=== PATIENT | male | born 1980 | race Caucasian/White ===

== ENCOUNTER 2016-11-04 10:35 | Emergency (ER) | payer MEDICAID, OTHER ==
[2016-11-04 10:50] VITALS: BP 124/77
--- NOTE | 2016-11-04 11:16 | ER Document Report ---
ED Medical Screen (RME) - General Chief Complaint: Dizziness Stated Complaint: DIZZINESS Mode of Arrival: Ambulatory Information source: Patient TRAVEL OUTSIDE OF THE [place] 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 Severity: Mild Associated Symptoms: Dizzy/lightheaded Exacerbated by: Other - Looking up, rapid rotation of head. Relieved by: Other - Resolve spontaneously after several seconds of no head movement. Similar symptoms previously: Yes Recently seen / treated by doctor: No - Related Data Allergies/Adverse Reactions: No Known Allergies Allergy (Verified 11/04/16 11:09) Home Medications: Current Home Medications Alprazolam 1 mg PO TID 11/04/16 [History] Duloxetine HCl [Cymbalta] 30 mg PO DAILY 11/04/16 [History] Propranolol HCl 60 mg PO BID 11/04/16 [History] Past Medical History - General Information source: Patient - Past Medical History Cardiac Medical History: Reports: None Pulmonary Medical History: Reports: None Neurological Medical History: Reports: Other - VERTIGO Renal/ Medical History: Denies: Hx Peritoneal Dialysis Physical Exam - Vital signs Vitals: Temp Pulse Resp BP Pulse Ox 98.2 F 74 18 124/77 96 11/04/16 10:48 11/04/16 10:48 11/04/16 10:48 11/04/16 10:48 11/04/16 10:48 Interpretation: Normal - General General appearance: Appears well, Alert In distress: None - Neurological Notes: NO APPARENT ATAXIA Course - Vital Signs Vital signs: Temp Pulse Resp BP Pulse Ox 98.2 F 74 18 124/77 96 11/04/16 10:48 11/04/16 10:48 11/04/16 10:48 11/04/16 10:48 11/04/16 10:48
[2016-11-04 11:33] LABS: ABSOLUTE BASOPHILS # (AUTO) 0.1 10^3/uL (0.0-0.2); ABSOLUTE EOSINOPHILS # (AUTO) 0.1 10^3/uL (0.0-0.6); ABSOLUTE LYMPHOCYTES (AUTO) 1.8 10^3/uL (0.5-4.7); ABSOLUTE MONOCYTES (AUTO) 0.6 10^3/uL (0.1-1.4); ABSOLUTE NEUT (AUTO) 5.6 10^3/uL (1.7-8.2); BASOPHILS % (AUTO) 0.6 % (0-2); HEMATOCRIT 42.2 % (37.9-51.0); HEMOGLOBIN 14.6 g/dL (13.5-17.0); HGB HCT DIFFERENCE 1.6; LYMPHOCYTES % (AUTO) 21.9 % (13-45); MEAN CORPUSCULAR HEMOGLOBIN 31.2 pg (27.0-33.4); MEAN CORPUSCULAR HGB CONC 34.5 g/dL (32.0-36.0); MEAN CORPUSCULAR VOLUME 91 fl (80-97); RED BLOOD COUNT 4.67 10^6/uL (4.35-5.55); RED CELL DISTRIBUTION WIDTH 13.3 % (11.5-14.0); SEGMENTED NEUTROPHILS % (AUTO) 69.5 % (42-78)
[2016-11-04 11:55] LABS: ALANINE AMINOTRANSFERASE 57 U/L (21-72); ALBUMIN 4.1 g/dL (3.5-5.0); ALKALINE PHOSPHATASE 71 U/L (38-126); ANION GAP 10 (5-19); ASPARTATE AMINO TRANSFERASE 37 U/L (17-59); BILIRUBIN,DIRECT 0.3 mg/dL (0.0-0.4); BILIRUBIN,TOTAL 0.6 mg/dL (0.2-1.3); BLOOD UREA NITROGEN 13 mg/dL (7-20); CALCIUM 9.2 mg/dL (8.4-10.2); CARBON DIOXIDE 27 mmol/L (22-30); CHLORIDE 106 mmol/L (98-107); CREATININE RESULT 0.89 mg/dL (0.52-1.25); GLUCOSE 156 mg/dL (75-110); POTASSIUM 4.5 mmol/L (3.6-5.0); SODIUM 143.3 mmol/L (137-145); TOTAL PROTEIN 6.8 g/dL (6.3-8.2)
--- NOTE | 2016-11-04 13:59 | ER Document Report ---
ED General - General Chief Complaint: Dizziness Stated Complaint: DIZZINESS Time seen by provider: 13:53 Mode of Arrival: Ambulatory Information source: Patient Notes: This is a 36-year-old man presents to the emergency room with symptoms suggestive of positional vertigo. The patient states that when he moves his head quickly or looks up he has spinning. He denies any headache, hearing loss , ringing in the year, focal weakness. He denies any significant dizziness on sudden standing from a sitting position or lying down. The patient does have a history of panic attacks and is currently on propranolol , Xanax and Cymbalta. He does have a history of recent sinusitis. He denies any fever or chills. Medicines: Propranolol 60 mg daily Xanax 1 mg 3 times a day Cymbalta No known drug allergies ] TRAVEL OUTSIDE OF THE [place] IN LAST 30 DAYS: No - HPI Onset: Last week Onset/Duration: Gradual Quality of pain: No pain Severity: None Pain Level: Denies Associated symptoms: Other - Recent sinusitis. denies: Chest pain, Fever Exacerbated by: Movement Relieved by: Denies Similar symptoms previously: No Recently seen / treated by doctor: No - Related Data Allergies/Adverse Reactions: No Known Allergies Allergy (Verified 11/04/16 11:09) Home Medications: Current Home Medications Alprazolam 1 mg PO TID 11/04/16 [History] Duloxetine HCl [Cymbalta] 30 mg PO DAILY 11/04/16 [History] Propranolol HCl 60 mg PO BID 11/04/16 [History] Past Medical History - General Information source: Patient - Social History Smoking Status: Current Every Day Smoker Cigarette use (# per day): Yes - half pack per day Chew tobacco use (# tins/day): No Smoking Education Provided: No Frequency of alcohol use: None Drug Abuse: None Lives with: Family Family History: None Patient has suicidal ideation: No Patient has homicidal ideation: No - Past Medical History Cardiac Medical History: Reports: None Pulmonary Medical History: Reports: None Neurological Medical History: Reports: Other - VERTIGO Renal/ Medical History: Denies: Hx Peritoneal Dialysis Surgical Hx: Negative Review of Systems - Review of Systems Constitutional: denies: Chills, Fever EENT: See HPI Cardiovascular: No symptoms reported Respiratory: No symptoms reported Gastrointestinal: No symptoms reported Genitourinary: No symptoms reported Male Genitourinary: No symptoms reported Musculoskeletal: No symptoms reported Skin: No symptoms reported Hematologic/Lymphatic: No symptoms reported Neurological/Psychological: See HPI Physical Exam - Vital signs Vitals: Temp Pulse Resp BP Pulse Ox 98.2 F 74 18 124/77 96 11/04/16 10:48 11/04/16 10:48 11/04/16 10:48 11/04/16 10:48 11/04/16 10:48 Notes: Physical exam: GENERAL: 36-year-old man, alert and oriented 3, no acute distress. HEAD: Atraumatic, normocephalic. EYES: Pupils equal round and reactive to light, extraocular movements intact, sclera anicteric, conjunctiva are normal. ENT: Ear canals are clear, left ear canal is erythematous and there is dullness to the tympanic membrane compared to the right, there is no bulging of that tympanic membrane. In general, the ear canal on the left looks quite irritated. Nares patent, oropharynx clear without exudates. Moist mucous membranes. NECK: Normal range of motion, supple without lymphadenopathy or JVD. LUNGS: Breath sounds clear to auscultation bilaterally and equal. No wheezes rales or rhonchi. HEART: Regular rate and rhythm without murmurs, rubs or gallops. ABDOMEN: Soft, normoactive bowel sounds. No tenderness to palpation. No guarding, no rebound. No masses appreciated. EXTREMITIES: Normal range of motion, no pitting or edema. No clubbing or cyanosis. NEUROLOGICAL: Cranial nerves II through XII grossly intact. Motor 5 over 5, sensory grossly intact, cerebellar good, Normal speech, normal gait. PSYCH: Normal mood, normal affect. SKIN: Warm, Dry, normal turgor, no rashes or lesions noted. Course - Vital Signs Vital signs: Temp Pulse Resp BP Pulse Ox 98.2 F 74 18 124/77 96 11/04/16 10:48 11/04/16 10:48 11/04/16 10:48 11/04/16 10:48 11/04/16 10:48 - Laboratory Result Diagrams: 11/04/16 11:21 11/04/16 11:21 Laboratory results interpreted by me: 11/04/16 11:21 Glucose 156 H Discharge - Discharge Clinical Impression: vertigo Condition: Stable Disposition: HOME, SELF-CARE Instructions: Vertigo ([facility]), Meclizine ([facility]) Additional Instructions: Recommendations: Start with the eardrops today. Take the meclizine only when dizzy. Additionally, I would not take it while you 're at work and up on ladders. If you are experiencing significant vertigo, I recommend not going up on a ladder. I would schedule an appointment with an ENT Dr.: His doctor specializes in dizziness. ENT Doctor: [facility] - [address] [place] [address] Toll Free: Prescriptions: Meclizine HCl 25 mg PO BID #10 tab.chew Neomy Sulf/Polymyx B Sulf/Hc [Cortisporin Otic Susp] 2 drop LFT_EYE Q6 #1 bottle
== END 2016-11-04 14:55 | disposition home or self-care (01) ==
LOC: ER 10:35
DX: R42 Dizziness and giddiness (principal); F17.210 Nicotine dependence, cigarettes, uncomplicated
CPT/HCPCS: 36415; 80053; 85025; 99284